=== PATIENT | female | born 1960 | race Caucasian/White ===

== ENCOUNTER → 2017-10-13 | Outpatient (CLI) | payer MEDICAID | LOC: FIMAGING 13:11 | PROVIDERS: ATTEND Obstetrics & Gynecology Gynecology | DX: Z12.31 Encounter for screening mammogram for malignant neoplasm of breast (principal) | CPT/HCPCS: G0202 ==

== ENCOUNTER → 2017-10-14 | Outpatient (CLI) | payer MEDICAID | LOC: FIMAGING 14:19 | PROVIDERS: ATTEND Obstetrics & Gynecology Gynecology | DX: N95.0 Postmenopausal bleeding (principal) ==

== ENCOUNTER 2018-07-14 14:02 | Emergency (ER) | payer MEDICAID, OTHER ==
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
[2018-07-14 15:49] LABS: PLATELET COUNT 289 10^3/uL (150-400)
[2018-07-14 15:56] LABS: INR 0.88 (0.83-1.16); PROTIME(PATIENT) 12.2 SEC (12.0-15.0)
[2018-07-14 16:55] VITALS: BP 127/84
== END 2018-07-14 16:55 | disposition home or self-care (01) ==
DX: R56.9 Unspecified convulsions (principal)